=== PATIENT | male | born 1960 | race Caucasian/White ===

== ENCOUNTER 2018-05-15 16:02 | Emergency (ER) | payer OTHER ==
[2018-05-15] MEDS: HYDROCODONE/APAP (5/325) TAB PO (17:02)
[2018-05-15] MEDS: IBUPROFEN 600 MG TAB PO (17:02)
== END 2018-05-15 18:00 | disposition home or self-care (01) ==
LOC: FTE 16:02
DX: S20.212A Contusion of left front wall of thorax, initial encounter (principal); F17.210 Nicotine dependence, cigarettes, uncomplicated; W18.39XA Other fall on same level, initial encounter; Y92.9 Unspecified place or not applicable
CPT/HCPCS: 71100; 99283-25